=== PATIENT | male | born 1960 | race Caucasian/White ===

== ENCOUNTER 2019-12-15 15:41 | Outpatient (CLI) | payer BC, SELFPAY ==
--- NOTE | ~2019-12-15 | XR_ITS ---
EXAMINATION: XR chest 2V DATE: 12/15/2019 15:52 INDICATION: Cough and congestion. TECHNIQUE: Frontal and lateral views of the chest were obtained. COMPARISON: Chest CT 09/28/2018 FINDINGS: There is mild scarring at the lung apices. A calcified right lung nodule and calcified righ t hilar lymph nodes are consistent with old granulomatous disease. No pleural effusion or pneumothora x. The heart size is normal. IMPRESSION: 1. Mild scarring at the lung apices. Reviewed, dictated and finalized at location A.
== END 2019-12-15 15:42 | disposition home or self-care (01) ==
PROVIDERS: PCP Family Medicine; Visit Provider Family Medicine
DX: R05 Cough (principal)
CPT/HCPCS: 71046

== ENCOUNTER 2021-03-30 07:31 | Outpatient (CLI) | payer BC, SELFPAY ==
[2021-03-30 07:48] LABS: Basophils Absolute Auto 0.1 K/mm3 (0.0-0.1); Basophils Percent Auto 1.1 % (0.2-1.2); Eosinophils Absolute Auto 0.4 K/mm3 (0-0.3); Eosinophils Percent Auto 4.5 % (0-4.4); Hematocrit 42.3 % (42.0-52.0); Hemoglobin 13.8 g/dL (14.0-18.0); Immature Granulocyte Absolute 0.03 K/mm3 (0.00-0.031); Immature Granulocyte Percent A 0.4 % (0-0.5); Lymphocytes Absolute Auto 1.87 K/mm3 (0.9-3.2); Lymphocytes Percent Auto 22.2 % (18.3-44.2); Mean Corpuscular HGB Conc 32.6 g/dl (32-36); Mean Corpuscular Hemoglobin 27.9 pg (26-34); Mean Corpuscular Volume 85.6 fl (80-100); Mean Platelet Volume 8.9 fl (7.4-10.4); Monocytes Absolute Auto 0.9 K/mm3 (0.1-0.6); Monocytes Percent Auto 10.1 % (2.6-8.5); Neutrophils Absolute Auto 5.2 K/mm3 (1.3-6.7); Neutrophils Percent Auto 61.7 % (45.5-73.1); Platelet Count Result 281 k/mm3 (150-375); Red Blood Count 4.94 M/mm3 (4.6-6.20); Red Cell Distribution Width 14.1 % (11.5-14.5); White Blood Count 8.4 K/mm3 (4.5-10.0)
[2021-03-30 08:05] LABS: Alanine Aminotransferase 22 U/L (4-50); Albumin Level 4.2 g/dL (3.5-5.1); Alkaline Phosphatase 68 U/L (38-126); Anion Gap 8 mmol/L (8-16); Aspartate Amino Transferase 30 U/L (17-59); Bilirubin,Total 0.5 mg/dL (0.2-1.3); Blood Urea Nitrogen 21 mg/dL (9-20); Carbon Dioxide 25 mmol/L (22-30); Chloride 108 mmol/L (98-107); Estimated Glomerular Filt Rate > 60; Glucose 101 mg/dL (75-110); Potassium 4.2 mmol/L (3.4-5.0); Sodium 141 mmol/L (137-145)
[2021-03-30 08:30] LABS: Prostate Specific Antigen 0.4 ng/mL (< OR = 4.0)
[2021-03-30 08:39] LABS: Vitamin D 25 Hydroxy 59.3 ng/mL
[2021-03-30 09:04] LABS: Folic Acid 13.1 ng/mL (2.76->20)
== END 2021-03-30 07:32 | disposition home or self-care (01) ==
PROVIDERS: PCP Family Medicine; Visit Provider Family Medicine
DX: E78.5 Hyperlipidemia, unspecified (principal); F17.200 Nicotine dependence, unspecified, uncomplicated; I10 Essential (primary) hypertension; M19.90 Unspecified osteoarthritis, unspecified site; Z13.9 Encounter for screening, unspecified; Z79.899 Other long term (current) drug therapy; Z82.62 Family history of osteoporosis; Z87.891 Personal history of nicotine dependence
CPT/HCPCS: 36415; 80053; 82306; 82607; 82746; 84153; 84443; 85025; G0103

== ENCOUNTER 2021-05-01 07:56 | Outpatient (CLI) | payer BC, SELFPAY ==
--- NOTE | ~2021-05-01 | XR_ITS ---
EXAMINATION: XR chest 2V 05/01/2021 08:47 INDICATION: Shortness of breath PROCEDURE: PA and lateral views of the chest COMPARISON: 12/15/2019 FINDINGS: The lungs are clear. The cardiomediastinal silhouette is within normal limits. There are no pleural effusions. There is no pneumothorax suspected. There is calcified granuloma right midlun g zone. IMPRESSION: 1: NO ACUTE CARDIOPULMONARY DISEASE. Reviewed, dictated and finalized at location A.
[2021-05-01 08:55] LABS: Basophils Absolute Auto 0.1 K/mm3 (0.0-0.1); Basophils Percent Auto 1.3 % (0.2-1.2); Eosinophils Absolute Auto 0.2 K/mm3 (0-0.3); Hematocrit 41.3 % (42.0-52.0); Hemoglobin 13.7 g/dL (14.0-18.0); Immature Granulocyte Absolute 0.03 K/mm3 (0.00-0.031); Immature Granulocyte Percent A 0.4 % (0-0.5); Lymphocytes Absolute Auto 1.63 K/mm3 (0.9-3.2); Lymphocytes Percent Auto 21.3 % (18.3-44.2); Mean Corpuscular HGB Conc 33.2 g/dl (32-36); Mean Corpuscular Hemoglobin 28.1 pg (26-34); Mean Corpuscular Volume 84.6 fl (80-100); Mean Platelet Volume 9.4 fl (7.4-10.4); Monocytes Absolute Auto 0.8 K/mm3 (0.1-0.6); Monocytes Percent Auto 10.1 % (2.6-8.5); Neutrophils Absolute Auto 4.9 K/mm3 (1.3-6.7); Neutrophils Percent Auto 63.9 % (45.5-73.1); Platelet Count Result 321 k/mm3 (150-375); Red Blood Count 4.88 M/mm3 (4.6-6.20); Red Cell Distribution Width 13.8 % (11.5-14.5); White Blood Count 7.7 K/mm3 (4.5-10.0)
[2021-05-01 10:10] LABS: Vitamin D 25 Hydroxy 68.5 ng/mL
[2021-05-01 11:18] LABS: Alanine Aminotransferase 19 U/L (4-50); Alkaline Phosphatase 73 U/L (38-126); Anion Gap 10 mmol/L (8-16); Aspartate Amino Transferase 23 U/L (17-59); Bilirubin,Total 0.6 mg/dL (0.2-1.3); Blood Urea Nitrogen 22 mg/dL (9-20); Calcium 9.1 mg/dL (8.4-10.2); Carbon Dioxide 24 mmol/L (22-30); Chloride 105 mmol/L (98-107); Cholesterol 208 mg/dL (0-200); Estimated Glomerular Filt Rate > 60; Glucose 103 mg/dL (65-110); HDL Direct 47 mg/dL; Potassium 4.2 mmol/L (3.4-5.0); Sodium 139 mmol/L (137-145); Triglycerides 100 mg/dL (<150)
[2021-05-01 11:36] LABS: LDL Cholesterol Direct 119 mg/dL
[2021-05-01 12:20] LABS: Prostate Specific Antigen 0.5 ng/mL (< OR = 4.0)
[2021-05-01 12:54] LABS: Folic Acid 10.3 ng/mL (2.76->20)
[2021-05-01 16:06] LABS: Add Urine Microscopic? NO; Appearance Urine Clear (Clear); Bilirubin Urine Negative (Negative); Blood Urine Negative (Negative); Color Urine Straw (Yellow); Glucose Urine UA Negative (Negative); Ketones Urine Negative (Negative); Leukocyte Esterase Ur Negative LEU/UL (Negative); Nitrate Urine Negative (Negative); Protein Urine Negative (Negative); Specific Grav Ur 1.011 (1.001-1.035); Urobilinogen Urine Negative mg/dL (<2.0)
== END 2021-05-01 07:57 | disposition home or self-care (01) ==
PROVIDERS: PCP Family Medicine; Visit Provider Family Medicine
DX: B35.1 Tinea unguium (principal); E78.5 Hyperlipidemia, unspecified; I10 Essential (primary) hypertension; M19.90 Unspecified osteoarthritis, unspecified site; Z82.62 Family history of osteoporosis; Z79.899 Other long term (current) drug therapy; Z87.891 Personal history of nicotine dependence
CPT/HCPCS: 36415; 71046; 80053; 80061; 81003; 82306; 82607; 82746; 84153; 84443; 85025; G0103

== ENCOUNTER 2021-10-19 07:26 | Outpatient (CLI) | payer BC, SELFPAY ==
--- NOTE | ~2021-10-19 | XR_ITS ---
EXAMINATION: XR hand RT min 3V DATE: 10/19/2021 07:42 INDICATION: Pain at the base of right thumb. TECHNIQUE: 3 views of right hand were obtained. COMPARISON: Right hand radiographs 11/03/2018 FINDINGS: Trapezium is absent. There is proximal migration of first metacarpal. There is dorsal tilt of lunate. No fracture. There is severe osteoarthritis of lunate-capitate joint and scaphoid-trapezoi d joint. IMPRESSION: 1. Dorsal tilt of lunate, consistent with dorsal intercalated segmental instability (DISI). 2. 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 3. Polyarticular osteoarthritis. Reviewed, dictated and finalized at location B. S ROLLER IMPRESSION: 1. Dorsal tilt of lunate, consistent with dorsal intercalated segmental instabi lity (DISI). 2. 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 3. Polyarticular osteoarthritis.
== END 2021-10-19 07:27 | disposition home or self-care (01) ==
LOC: ANHBWCIMG 07:29
PROVIDERS: PCP Family Medicine; Visit Provider Family Medicine
DX: M19.041 Primary osteoarthritis, right hand (principal)
CPT/HCPCS: 73130

== ENCOUNTER 2021-10-31 14:30 | Outpatient (CLI) | payer BC, SELFPAY ==
--- NOTE | 2021-10-31 14:35 | ECG_ITS ---
Measurements Intervals [place] Rate: 73 P: 52 NH: 179 QRS: -15 QRSD: 113 T: 23 QT: 378 QTc: 418 Interpretive Statements SINUS RHYTHM ATRIAL PREMATURE COMPLEX INCOMPLETE RIGHT BUNDLE BRANCH BLOCK DELAYED PRECORDIAL R/S TRANSITION POSSIBLE LEFT VENTRICULAR HYPERTROPHY MINIMAL Q WAVES- HIGH LATERAL LEADS BORDERLINE ECG Electronically Signed On 10-31-2021 15:10:52 DOOR CLAMP OPERATOR by Teja Sherman D.O.
== END 2021-10-31 14:31 | disposition home or self-care (01) ==
LOC: ANHSURGERY 14:34
PROVIDERS: PCP Family Medicine; Visit Provider Podiatrist Foot & Ankle Surgery
DX: I10 Essential (primary) hypertension (principal); Z01.818 Encounter for other preprocedural examination; I45.10 Unspecified right bundle-branch block
CPT/HCPCS: 93005

== ENCOUNTER 2021-11-03 01:40 | Day surgery (SDC) | payer BC, SELFPAY ==
[2021-10-30 10:10] VITALS: BMI 30.2
--- NOTE | 2021-10-31 10:09 | SUR.PREOP ---
Report to the Outpatient Waiting Room, entrance under the green pavilion located off [facility], at time 0600_ on date 11/03/21__. OR Time: _0730___. - You and your visitor will be asked a series of questions to screen for COVID 19 for your protection. - A mask is required within the hospital. - Only one visitor is allowed at this time. Patient visitors will be guided where to wait when not with patient. Preoperative COVID Testing Requirements: No COVID Test needed if: (proof is required; if not received patient will have Rapid Test prior to entry) - Patient has received COVID Vaccine at least 14 days prior to procedure date or - Patient has positive COVID test result within last 90 days of surgery date. COVID Test needed if above criteria is not met If not COVID vaccinated a COVID test must be conducted within 72 hours of surgery and patient is asked to isolate self from time of testing until procedure. You will go to the [facility] for your COVID testing. The [facility] site is located at the corner of [address] [facility]. You will only be called if COVID results are positive and your surgeon may reschedule your elective surgery date. Patients may have clear liquids (water, carbonated beverages, clear teas, apple juice) until 3 hours prior to surgery with a maximum of 20 ounces. - No food from midnight until time of surgery may have 20 ounces of clear liquid before 0430 - Infants may have breast milk until 4 hours before surgery, formula 6 hours prior to surgery. - Children will be allowed to drink immediately following surgery. If applicable, please bring a bottle or sippy cup to assist with drinking. Juice, water, soda, and popsicles are readily available. For infants on formula, please bring formula the day of surgery. Pacifiers are allowed. Take the following medications with a SIP of water the morning of surgery: hold morning meds of surgery__ Medications to discontinue per physician _aspirin and piroxicam one week per surgeon order Date to take last dose__10/28/21 Please no make-up, nail jordanian, hairspray, perfume, deodorant, or body powder the day of surgery. No jewelry (including any body piercings) or valuables the day of surgery, leave them at home. Please take a shower or bath the night before, or the morning of, surgery with an antibacterial soap. Wear comfortable, loose fitting clothing. Children are encouraged to wear pajamas. - Jewelry must be removed prior to entering the operating room. Rings and piercings that are not removed may be cut off. - The hospital will not accept responsibility for valuables. - Please leave all valuables, including medications, at home the day of surgery. If you are going home after surgery, a licensed road driver must drive you home. - NO public transportation without another adult. - We recommend that an adult stay with you for 24 hours following discharge. - We also recommend that you do not drive, make important decision, drink alcoholic beverages, or take any drugs that were not prescribed by your health care provider for at least 24 hours after your discharge time. For Pediatric surgeries, we recommend two adults accompany the child home (only one inside the building at this time). Follow any additional instructions given to you from your surgeon. Telephone instructions given to __patient and asked if any additional questions and then verbalized understanding. Patient advised to call surgeon office or pre surgery nurse liaison [phone] if any additional questions.
--- NOTE | 2021-11-02 11:59 | WPDANESEPPF ---
Anes - Initial Pre Proc Eval Procedure: Operation Date: 11/03/21 07:30 Proposed Procedures p Arthrodesis First through Third Metatarsal Cuneiform Joint Right Foot, - Alcides Forbes JR, MD s Arthrodesis of The Subtalar Joint Right Foot - Alcides Forbes JR, MD Date/Time: 11/02/21 11:59 Surgeon: Alcides Forbes JR, MD Pre Op Diagnosis: neglected lisfranc injury, w/ pes planovalgus def Patient Data Age: 61 Gender: M Height: 1.88 m Weight: 106.59 kg Allergies Allergy/AdvReac Type Severity Reaction Status Date / Time amoxicillin Allergy Unknown Vomiting Verified 11/03/21 06:00 Home Medications Medication Instructions Recorded Confirmed Type terbinafine HCl 250 mg tablet 250 mg PO DAILY 03/20/21 11/03/21 History hydrocodone 10 mg-acetaminophen 1 tablet PO DAILY PRN #30 tablet 10/17/21 10/30/21 Rx 325 mg tablet losartan 100 mg tablet 100 mg PO DAILY #90 tablet 10/17/21 11/03/21 Rx piroxicam 20 mg capsule 20 mg PO DAILY #90 cap 10/17/21 11/03/21 Rx prochlorperazine maleate 10 mg 10 mg PO Q8H PRN #90 tablet 10/17/21 11/03/21 Rx tablet tadalafil 10 mg tablet 10 mg PO DAILY PRN #30 tablet 10/17/21 10/30/21 Rx trazodone 50 mg tablet 50 mg PO QHS PRN #30 tablet 10/17/21 11/03/21 Rx aspirin 325 mg PO DAILY 10/30/21 11/03/21 History omeprazole [Prilosec] 40 mg PO DAILY 10/30/21 11/03/21 History Patient hx anesthesia problems: none Family hx anesthesia problems: none Results Review: All pre-operative results and documents have been reviewed as part of the pre-operative evaluation. [facility], LAT[facility] Past Medical History Medical History (Updated 11/02/21 @ 12:00 by Eduardo Colin MD) Arthritis Cataract, right eye (~09/2019) Chronic narcotic use Hypertension (~09/2019) Obesity Smoker Snoring Surgical History Surgical History H/O thumb surgery History of back surgery Family History Family History Father Hypertension Family history of arthritis Family history of Alzheimer's disease, Onset Age: 88 Malignant neoplasm of prostate Sibling Hypertension Mother Family history of rheumatoid arthritis, Onset Age: 67 Social History Social History Smoking packs per day: 1.5 Smoking cigarettes per day: 30.0 Years smoked: 47 Smoking pack-years: 70.50 Smoking status: Former smoker Tobacco type: cigarettes Smoking end date: 10/30/21 Alcohol intake: current Drinks per week: 6 Substance use: never Substance use type: does not use Living arrangements: with family Spiritual care concerns: No Anes - Eval Final PreProcedure Day of Procedure 11/02/21 11:59 Patient weight: obese Heart: regular rate and rhythm Lungs: clear to auscultation and normal air movement Airway: Mallampati scale class II Neurological: alert and oriented Last oral intake: >/= 8 hours ASA classification: III Emergent: no Anesthetic plan: proceed Anesthesia type and monitoring: general LMA Results Review: All pre-operative results and documents have been reviewed as part of the pre-operative evaluation. Informed Consent: The patient's anesthetic plan and its attendant risks and benefits were discussed with the patient/family/POA. Questions were solicited and answers provided to the satisfaction of the patient/family/POA.
--- NOTE | 2021-11-02 12:03 | WPDANESPNB ---
Anes - Peripheral Nerve Block Date/Time: 11/02/21 12:03 I have discussed with the patient/family/POA the placement of a peripheral nerve block for post-operative pain management, including associated risks, benefits, complications, and side effects. Alternative methods of post-operative analgesia were detailed. Questions were solicited and answers provided to the satisfaction of the patient/family/POA. Time-Out: A pre-procedural Time-Out was completed immediately before starting the procedure and confirmed: Patient Identification, Site, Procedure, Patient Position and the Availability of Requisite Equipment. Clinical Indications: Acute post-operative pain management requested by the operative surgeon. Nerve Block Insertion Note Anes-nerve block: posterior fossa sciatic (20cc) right and adductor canal (10cc) right Patient position: supine Skin prep: chlorhexidine Needle: 22 gauge, stimulating, insulated echogenic needle. Needle length: 80 mm Technique: ultrasound (in plane) Injectate: bupivacaine 0.5% with epi 5 mcg/ml (20cc) Observations: tolerated well Complications: none Procedure start time:: 725 Procedure end time:: 0
[2021-11-03] VITALS (9 sets, daily range): BP systolic 104–171; BP diastolic 69–98; PULSE 75–106; RESP 10–20; TEMP 36.3–36.6; O2SAT 95–97; BMI 29.8
--- NOTE | ~2021-11-03 | XR_ITS ---
EXAMINATION: XR surgery orthopedic EXAM DATE: 11/03/2021 10:21 INDICATION: Right foot arthrodesis. TECHNIQUE: Fluoroscopy used during XR surgery orthopedic performed by Dr. Alcides Forbes JR MD. Radiologist was not present for the imaging or procedure. Total fluoroscopic time of 2 minutes 10 se conds. The DAP for this procedure was 27 cGycm2. A total of 5 images sent to PACS from the exam. FINDINGS: Images demonstrate lack screw extending through the subtalar joint, additional hardware ri dging the 1st metatarsal base, metatarsophalangeal joint, cuneiform bones. Correlate with procedure note. IMPRESSION: Fluoroscopy used during right foot surgery. Reviewed, dictated and finalized at location A. BLACKSMITH
[2021-11-03] MEDS: LACTATED RINGERS 1,000 ML 30 ML IV CONT ×2 (06:15→10:38)
--- NOTE | 2021-11-03 07:07 | WPDHPUPDATE1 ---
History and Physical Update Update Date/Time: 11/03/21 07:07 History and Physical has been reviewed, including an updated exam of the patient. There are NO changes in the patient's condition. Risks, benefits, and alternatives have been discussed and questions answered. Patient agrees to proceed with procedure.
[2021-11-03] MEDS: ceFAZolin 2 GM/D5W 50 ML 2 GM/50 ML BAG IVPB (07:35)
[2021-11-03] MEDS: fentaNYL CITRATE INJ (*CRX) 100 MCG/2 ML VIAL 25 MCG IV PUSH ×4 (10:50→11:33)
--- NOTE | 2021-11-03 10:50 | W.PM.PROC2 ---
Procedure Note - Detailed Date of Procedure 11/03/21 Pre-op Diagnosis 1. 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 Post traumatic pes plano valgus deformity right foot Post-op Diagnosis same Procedure Performed 1. Subtalar joint fusion right foot 2. Stabilization of the left midfoot left Surgeon Alcides Forbes JR, MD Anesthesia general and regional Indications Painful right hindfoot and midfoot Description of Procedure PROCEDURE IN DETAIL: Under mild sedation, the patient was brought into the operating room and placed on the operating table in the supine position. A pneumatic thigh tourniquet was placed about the patient's thigh. Following general anesthesia and a previous popliteal fossa block, the foot and ankle was then scrubbed, prepped, and draped in the usual aseptic manner. An Esmarch bandage was then used to exsanguinate the patient's foot and ankle and the pneumatic thigh tourniquet was then inflated to 350 mmHg. Surgery began in the following manner: At this point attention was directed to the lateral aspect of the hindfoot. An incision was made starting just distal to the lateral malleolus and extending towards the base of the 4th metatarsal. The incision was continued deep down through the subcutaneous tissues using sharp and blunt dissection. All bleeders were ligated and cauterized as necessary. At this point, the sinus tarsi was explored. A rongeur was used to resect all sinus tarsi contents and fat significant synovial tissue was debrided. The talocalcaneal ligament was cut. The extensor digitorum brevis muscle was detached form its origin to expose the calcaneal cuboid joint and lateral aspect of the posterior subtalar joint. The dissection was continued deep down through the subcutaneous tissues using sharp and blunt dissection both anterior and posterior to the sinus tarsi area. Furthermore, the dissection was continued posteriorly where the peroneal tendon sheath was incised exposing the peroneal tendons posteriorly. The calcaneofibular ligament was left intact. Next, a joint distractor was positioned along the lateral aspect of the talus and lateral aspect of the calcaneus. Two large Steinmann pins were placed from lateral to medial across the lateral aspect of the talar body and lateral aspect of the calcaneal body. The joint distractor was then used to open the subtalar joint exposing the cartilage and subchondral bone. Curette was used to resect all cartilage from the subtalar joint. Next, a small osteotome and mallet were used to fenestrate the posterior facet, floor of the sinus tarsi as well as the anterior and medial facets of the subtalar joint. Next, a 2.0 mm drill bit was used to also fenestrate the subchondral bone. Finally, a curette was also used to make sure that there is no remaining cartilage noted. None was noted. The wound site was flushed with copious amounts of sterile saline. At this point, the subtalar joint was held in a slight valgus position approximately 5 degrees. Next, a large guide wire for the [employer] headless 7.0 cannulated screw system was used to hold the subtalar joint in that slight valgus position and directed from the dorsal medial aspect of the neck of the talus to near the tuber of the calcaneus posterolaterally. A calcaneal axial view was used to make sure that the Steinmann pin was positioned within the constraints of the calcaneus and that there was good apposition of the subtalar joint. At this point, a 7.0 mm MUC Gengo headless compression screw was driven from dorsal to plantar across the subtalar joint with excellent compression noted and felt. This was all done in standard principles and techniques for the Gengo MUC screw system. The Gengo Allomatrix DR pena used to pack the sinus tarsi and parts of the visualized subtalar joint. Next, the medial incision was extended distally to the centra
[2021-11-03] MEDS: oxyCODONE HCL (*CRX) 5 MG TAB IR PO (12:09)
== END 2021-11-03 13:02 | disposition home or self-care (01) ==
PROVIDERS: PCP Family Medicine; Visit Provider Podiatrist Foot & Ankle Surgery
PROC: (CPT 28750; principal; 2021-11-03 07:30)
PROC: (CPT 28750; 2021-11-03 07:30)
DX: S92.201A Fracture of unspecified tarsal bone(s) of right foot, initial encounter for closed fracture (principal); X58.XXXA Exposure to other specified factors, initial encounter; G89.18 Other acute postprocedural pain; M19.071 Primary osteoarthritis, right ankle and foot; M25.374 Other instability, right foot; M21.41 Flat foot [pes planus] (acquired), right foot; Z79.82 Long term (current) use of aspirin; M19.90 Unspecified osteoarthritis, unspecified site; I10 Essential (primary) hypertension; R06.83 Snoring; Z87.891 Personal history of nicotine dependence; M25.571 Pain in right ankle and joints of right foot
CPT/HCPCS: 28725; 64445; 64447; 28740; A9270; C1713; J0690; J1100; J2250; J2405; J2704; J3010; J7120

== ENCOUNTER 2022-02-19 12:02 | Outpatient (CLI) | payer BC, SELFPAY ==
--- NOTE | ~2022-02-19 | XR_ITS ---
EXAMINATION: XR wrist RT min 3V INDICATION: Osteoarthritis, history of trapezium resection TECHNIQUE: Four views of the right wrist are obtained. COMPARISON: 10/19/2021 FINDINGS: Changes of trapezium resection are again noted. There is resulting proximal migration of th e first metacarpal. There is stable dorsal tilt of the lunate. There is severe osteoarthritis at the lunate capitate joint and the scaphoid-trapezoid joint. There are lucencies in the ulnar styloid. No fracture is identified. The soft tissues are unremarkable. IMPRESSION: 1. Dorsal intercalated segmental instability, unchanged. 2. Polyarticular osteoarthritis. 3. Changes of trapezium resection. Reviewed, dictated and finalized at location A.
== END 2022-02-19 12:03 | disposition home or self-care (01) ==
PROVIDERS: PCP Family Medicine
DX: M19.031 Primary osteoarthritis, right wrist (principal)
CPT/HCPCS: 73110

== ENCOUNTER 2022-05-14 08:38 | Outpatient (CLI) | payer BC, SELFPAY ==
--- NOTE | ~2022-05-14 | XR_ITS ---
EXAMINATION: XR chest 2V 05/14/2022 09:04 INDICATION: Cough for one month PROCEDURE: 2 view chest COMPARISON: 12/15/2019 FINDINGS: The lungs are clear. The cardiomediastinal silhouette is within normal limits. There are no pleural effusions. There is no pneumothorax suspected. There is calcified granuloma right mid th orax. There is chronic apical pleural thickening/scarring. IMPRESSION: 1: NO ACUTE CARDIOPULMONARY DISEASE. Reviewed, dictated and finalized at location A.
== END 2022-05-14 08:39 | disposition home or self-care (01) ==
LOC: ANHBWCIMG 08:39
PROVIDERS: PCP Family Medicine; Visit Provider Family Medicine
DX: R05.9 Cough, unspecified (principal); R09.89 Other specified symptoms and signs involving the circulatory and respiratory systems
CPT/HCPCS: 71046

== ENCOUNTER 2023-01-17 13:40 | Outpatient (CLI) | payer BC, SELFPAY ==
--- NOTE | ~2023-01-17 | CT_ITS ---
EXAMINATION: CT lung screening DATE: 01/17/2023 14:01 INDICATION: History of tobacco dependence. TECHNIQUE: Computed tomography (CT) of the chest was performed without intravenous contrast. The dose -length product was 209.32 mGy-cm. Automated exposure control and iterative reconstruction technique were employed. COMPARISON: CT dated 09/28/2018 FINDINGS: Stable low-density lesions in the liver, most likely cysts. The spleen contains calcified g ranulomas. No significant pleural or pericardial effusion. Borderline size mediastinal lymph nodes ar e likely reactive. Mild atherosclerosis. There is apical pleural thickening/scarring. Calcified granu anjali right mid thorax. No endobronchial lesions. No pneumothorax. Stable 2 mm right upper lobe nodule . 2 mm nodule right middle lobe. No acute osseous abnormality. IMPRESSION: 1. Lung-RADS category 2: Benign appearance or behavior. Continue annual screening with noncontrast lo w-dose chest CT in 12 months. Reviewed, dictated and finalized at location L. IMPRESSION: 1. Lung-RADS category 2: Benign appearance or behavior. Continue annual screeni ng with noncontrast low-dose chest CT in 12 months.
== END 2023-01-17 13:41 | disposition home or self-care (01) ==
PROVIDERS: PCP Family Medicine; Visit Provider Family Medicine
DX: Z12.2 Encounter for screening for malignant neoplasm of respiratory organs (principal); Z87.891 Personal history of nicotine dependence
CPT/HCPCS: 71271

== ENCOUNTER 2023-09-16 09:14 | Outpatient (CLI) | payer BC, SELFPAY ==
--- NOTE | ~2023-09-16 | XR_ITS ---
Left foot Technique: AP, oblique, and lateral views were obtained. Clinical History: Anesthesia scan Findings: No acute fracture or dislocation is seen. Osseous alignment is anatomic. Joint spaces are p reserved without erosive or degenerative change. Soft tissues are unremarkable. Impression: Unremarkable left foot radiographs. Reviewed, dictated and finalized at [facility]. DIABETES EDUCATOR Impression: Unremarkable left foot radiographs.
[2023-09-16 18:51] LABS: Hematocrit 48.2 % (42.0-52.0); Hemoglobin 15.3 g/dL (14.0-18.0); Mean Corpuscular HGB Conc 31.7 g/dl (32-36); Mean Corpuscular Hemoglobin 27.8 pg (26-34); Mean Corpuscular Volume 87.5 fl (80-100); Platelet Count Result 318 k/mm3 (150-375); Red Blood Count 5.51 M/mm3 (4.6-6.20); Red Cell Distribution Width 14.6 % (11.5-14.5); White Blood Count 10.8 K/mm3 (4.5-10.0)
[2023-09-16 20:12] LABS: Alanine Aminotransferase 22 U/L (6-50); Albumin Level 4.2 g/dL (3.5-5.1); Alkaline Phosphatase 70 U/L (38-126); Anion Gap 8 mmol/L (8-16); Aspartate Amino Transferase 54 U/L (17-59); Bilirubin,Total 0.8 mg/dL (0.2-1.3); Blood Urea Nitrogen 20 mg/dL (9-20); Calcium 9.4 mg/dL (8.4-10.2); Carbon Dioxide 25 mmol/L (22-30); Chloride 107 mmol/L (98-107); Estimated Glomerular Filt Rate > 60; Glucose 75 mg/dL (65-110); Potassium 4.1 mmol/L (3.4-5.0); Sodium 140 mmol/L (137-145)
== END 2023-09-16 09:15 | disposition home or self-care (01) ==
LOC: ANHBWCLAB 09:15
PROVIDERS: PCP Family Medicine; Visit Provider Family Medicine
DX: R20.0 Anesthesia of skin (principal); R53.83 Other fatigue; E66.9 Obesity, unspecified; F17.200 Nicotine dependence, unspecified, uncomplicated; D64.9 Anemia, unspecified
CPT/HCPCS: 36415; 73630; 80053; 85027

== ENCOUNTER 2023-12-27 08:18 | Outpatient (CLI) | payer BC, SELFPAY ==
--- NOTE | ~2023-12-27 | CT_ITS ---
CT Scan of the Chest without Contrast: Clinical Indication: Lung cancer screening, personal history of nicotine dependence Technique: Contiguous sections were acquired throughout the chest without intravenous contrast. Dose reduction technique was used on this scan by utilizing automated exposure control and iterative recon struction technique. The dose-length product (DLP) was 255.45 mGy-cm. COMPARISON: 01/17/2023 Findings: There is no evidence of any significant mediastinal, hilar or axillary lymphadenopathy. The mediastin al soft tissues appear normal. There is no evidence of pleural or pericardial effusion. Stable biapical scarring noted. Calcified right upper lobe granuloma present. Images through the upper abdomen reveal no abnormalities. Impression: Lung RADS 2: Benign appearance. 12 month follow-up screening CT advised. Reviewed, dictated and finalized at location . Impression: Lung RADS 2: Benign appearance. 12 month follow-up screening CT advised.
== END 2023-12-27 08:19 | disposition home or self-care (01) ==
PROVIDERS: PCP Family Medicine; Visit Provider Family Medicine
DX: Z12.2 Encounter for screening for malignant neoplasm of respiratory organs (principal); Z87.891 Personal history of nicotine dependence
CPT/HCPCS: 71271

== ENCOUNTER 2024-02-21 00:23 | Day surgery (SDC) | payer BC, SELFPAY ==
[2024-02-10 15:51] VITALS: BMI 31.4
[2024-02-21 06:48] VITALS: BP 165/96; PULSE 93; RESP 18; TEMP 36.5; O2SAT 97; BMI 32.2
[2024-02-21] MEDS: LACTATED RINGERS 1,000 ML 150 ML IV CONT (06:57)
--- NOTE | 2024-02-21 07:50 | PM.HPGS ---
History of Present Illness History of Present Illness Consent: Risks, benefits, and alternatives have been discussed and questions answered. Patient agrees to proceed with procedure. Chief complaint: hx of colon polyps Narrative: eGn Cifuentes is a 63 year old male with colon polyp 7 years ago Review of Systems Review of Systems: All systems reviewed & are unremarkable except as noted in HPI and below PMFSH Past Medical History Medical History (Updated 02/21/24 @ 07:53 by Evaristo Rico MD) Adenomatous colon polyp Arthritis Cataract, right eye (~09/2019) Chronic narcotic use Hypertension (~09/2019) Obesity Smoker Snoring Surgical History Surgical History H/O thumb surgery History of back surgery Family History Family History Father Hypertension Family history of arthritis Family history of Alzheimer's disease, Onset Age: 88 Malignant neoplasm of prostate Sibling Hypertension Mother Family history of rheumatoid arthritis, Onset Age: 67 Social History Social History Smoking packs per day: 2 Smoking cigarettes per day: 40.0 Years smoked: 47 Smoking pack-years: 94.00 Smoking status: Former smoker Tobacco type: cigarettes Smoking end date: 10/30/21 Alcohol intake: current Drinks per week: 4 Substance use: never Substance use type: does not use Living arrangements: with family Spiritual care concerns: No Meds Home Medications and Allergies Home Medications Medication Instructions Recorded Confirmed Type prochlorperazine maleate 10 mg 10 mg PO Q8H PRN nausea and 10/17/21 02/21/24 Rx tablet vomiting #90 tabs omeprazole 40 mg capsule,delayed 40 mg PO DAILY #90 caps 10/23/22 02/21/24 Rx release benzonatate 200 mg capsule 200 mg PO TID PRN cough #30 caps 08/23/23 02/21/24 Rx hydrocodone 10 mg-acetaminophen 1 tablet PO DAILY PRN pain #30 tabs 09/16/23 02/21/24 Rx 325 mg tablet trazodone 100 mg tablet 100 mg PO QHS PRN insomnia #90 tabs 10/01/23 02/21/24 Rx amlodipine 5 mg tablet 2.5 mg PO DAILY 12/23/23 02/21/24 History aspirin 325 mg tablet 650 mg PO DAILY 12/23/23 02/21/24 History montelukast 10 mg tablet 10 mg PO DAILY #90 tabs 12/30/23 02/21/24 Rx losartan 100 mg tablet 100 mg PO DAILY #90 tabs 02/03/24 02/21/24 Rx piroxicam 20 mg capsule 20 mg PO DAILY #90 caps 02/03/24 02/21/24 Rx tadalafil 10 mg tablet (Cialis) 10 mg PO DAILY 02/10/24 02/21/24 History Allergies Allergy/AdvReac Type Severity Reaction Status Date / Time codeine AdvReac Intermediate Gastrointestinal Verified 02/21/24 06:47 Upset amoxicillin AdvReac Unknown constipatio Verified 02/21/24 06:47 n Vital Signs Vital Signs - 24 hr 02/21/24 06:48 Temperature 97.7 F Pulse Rate 93 Respiratory Rate 18 Blood Pressure 165/96 H Pulse Oximetry 97 Oxygen Delivery Room Air Exam Const: General: comfortable and no acute distress HENMT: Face/Nose/Sinus: Normal nares present Eyes: General: appearance normal, both eyes and all related structures Neck: Neck: no JVD Resp: Auscultation: clear to auscultation bilaterally Cardio: Rate: regular rate Rhythm: regular rhythm GI: Inspection: non-distended GI Palp: Yes Soft to palpation Skin: General skin exam: normal color Neuro: General: gait normal Speech: normal speech Extrem: General: normal to inspection Psych: Mental Status: mental status grossly normal Assessment and Plan Assessment and plan (1) Adenomatous colon polyp: Code(s): D12.6 - Benign neoplasm of colon, unspecified Status: Acute Assessment and Plan: colonoscopy
--- NOTE | 2024-02-21 07:58 | WPDANESEPPF ---
Anes - Initial Pre Proc Eval Procedure: Operation Date: 02/21/24 08:00 Proposed Procedures p Colonoscopy - Evaristo Rico MD Date/Time: 02/21/24 07:58 Surgeon: Evaristo Rico MD Pre Op Diagnosis: hx of colon polyps Patient Data Age: 63 Gender: M Height: 1.88 m Weight: 114 kg Last Vital Signs Temp 97.7 F 02/21/24 06:48 Pulse 93 02/21/24 06:48 Resp 18 02/21/24 06:48 BP 165/96 H 02/21/24 06:48 Pulse Ox 97 02/21/24 06:48 O2 Del Method Room Air 02/21/24 06:48 Allergies Allergy/AdvReac Type Severity Reaction Status Date / Time codeine AdvReac Intermediate Gastrointestinal Verified 02/21/24 06:47 Upset amoxicillin AdvReac Unknown constipatio Verified 02/21/24 06:47 n Home Medications Medication Instructions Recorded Confirmed Type prochlorperazine maleate 10 mg 10 mg PO Q8H PRN nausea and 10/17/21 02/21/24 Rx tablet vomiting #90 tabs omeprazole 40 mg capsule,delayed 40 mg PO DAILY #90 caps 10/23/22 02/21/24 Rx release benzonatate 200 mg capsule 200 mg PO TID PRN cough #30 caps 08/23/23 02/21/24 Rx hydrocodone 10 mg-acetaminophen 1 tablet PO DAILY PRN pain #30 tabs 09/16/23 02/21/24 Rx 325 mg tablet trazodone 100 mg tablet 100 mg PO QHS PRN insomnia #90 tabs 10/01/23 02/21/24 Rx amlodipine 5 mg tablet 2.5 mg PO DAILY 12/23/23 02/21/24 History aspirin 325 mg tablet 650 mg PO DAILY 12/23/23 02/21/24 History montelukast 10 mg tablet 10 mg PO DAILY #90 tabs 12/30/23 02/21/24 Rx losartan 100 mg tablet 100 mg PO DAILY #90 tabs 02/03/24 02/21/24 Rx piroxicam 20 mg capsule 20 mg PO DAILY #90 caps 02/03/24 02/21/24 Rx tadalafil 10 mg tablet (Cialis) 10 mg PO DAILY 02/10/24 02/21/24 History Patient hx anesthesia problems: none Family hx anesthesia problems: none Results Review: All pre-operative results and documents have been reviewed as part of the pre-operative evaluation. [facility] Past Medical History Medical History (Updated 02/21/24 @ 07:53 by Evaristo Rico MD) Adenomatous colon polyp Arthritis Cataract, right eye (~09/2019) Chronic narcotic use Hypertension (~09/2019) Obesity Smoker Snoring Surgical History Surgical History H/O thumb surgery History of back surgery Family History Family History Father Hypertension Family history of arthritis Family history of Alzheimer's disease, Onset Age: 88 Malignant neoplasm of prostate Sibling Hypertension Mother Family history of rheumatoid arthritis, Onset Age: 67 Social History Social History Smoking packs per day: 2 Smoking cigarettes per day: 40.0 Years smoked: 47 Smoking pack-years: 94.00 Smoking status: Former smoker Tobacco type: cigarettes Smoking end date: 10/30/21 Alcohol intake: current Drinks per week: 4 Substance use: never Substance use type: does not use Living arrangements: with family Spiritual care concerns: No Anes - Eval Final PreProcedure Day of Procedure 02/21/24 07:58 Patient weight: obese Heart: regular rate and rhythm Lungs: clear to auscultation Airway: Mallampati scale class III Neurological: alert and oriented Last oral intake: >/= 8 hours ASA classification: III Emergent: no Anesthetic plan: proceed Anesthesia type and monitoring: general GIVS and standard monitoring Results Review: All pre-operative results and documents have been reviewed as part of the pre-operative evaluation. Informed Consent: The patient's anesthetic plan and its attendant risks and benefits were discussed with the patient/family/POA. Questions were solicited and answers provided to the satisfaction of the patient/family/POA.
[2024-02-21 08:16] VITALS: BP 138/83; PULSE 88; RESP 28; O2SAT 97
[2024-02-21 08:26] VITALS: BP 153/89; PULSE 87; RESP 23; O2SAT 100
[2024-02-21 08:36] VITALS: BP 137/95; PULSE 83; RESP 20; O2SAT 99
== END 2024-02-21 08:38 | disposition home or self-care (01) ==
PROVIDERS: PCP Family Medicine; Visit Provider Internal Medicine Gastroenterology
PROC: 0DJD8ZZ Inspection of Lower Intestinal Tract, Via Natural or Artificial Opening Endoscopic (ICD-10-PCS; CPT 45378; principal; 2024-02-21 08:00)
DX: Z12.11 Encounter for screening for malignant neoplasm of colon (principal); K57.30 Diverticulosis of large intestine without perforation or abscess without bleeding; K64.8 Other hemorrhoids; Z86.010 Personal history of colon polyps; I10 Essential (primary) hypertension; Z79.82 Long term (current) use of aspirin; Z79.891 Long term (current) use of opiate analgesic; E66.9 Obesity, unspecified; Z68.32 Body mass index [BMI] 32.0-32.9, adult; Z87.891 Personal history of nicotine dependence
CPT/HCPCS: 45378; J2704; J7120

== ENCOUNTER 2024-04-24 09:38 | Outpatient (CLI) | payer BC, SELFPAY ==
[2024-04-24 10:00] LABS: Basophils Absolute Auto 0.1 K/mm3 (0.0-0.1); Basophils Percent Auto 1.3 % (0.2-1.2); Eosinophils Absolute Auto 0.5 K/mm3 (0-0.3); Eosinophils Percent Auto 5.4 % (0-4.4); Hematocrit 46.3 % (42.0-52.0); Hemoglobin 15.2 g/dL (14.0-18.0); Immature Granulocyte Absolute 0.02 K/mm3 (0.00-0.031); Immature Granulocyte Percent A 0.2 % (0-0.5); Lymphocytes Absolute Auto 1.94 K/mm3 (0.9-3.2); Lymphocytes Percent Auto 22.7 % (18.3-44.2); Mean Corpuscular HGB Conc 32.8 g/dl (32-36); Mean Corpuscular Hemoglobin 28.2 pg (26-34); Mean Corpuscular Volume 85.9 fl (80-100); Monocytes Absolute Auto 0.8 K/mm3 (0.1-0.6); Monocytes Percent Auto 9.4 % (2.6-8.5); Neutrophils Absolute Auto 5.2 K/mm3 (1.3-6.7); Platelet Count Result 291 k/mm3 (150-375); Red Blood Count 5.39 M/mm3 (4.6-6.20); Red Cell Distribution Width 13.8 % (11.5-14.5); White Blood Count 8.6 K/mm3 (4.5-10.0)
[2024-04-24 10:12] LABS: Alanine Aminotransferase 19 U/L (6-50); Albumin Level 4.3 g/dL (3.5-5.1); Alkaline Phosphatase 70 U/L (38-126); Anion Gap 8 mmol/L (4-12); Aspartate Amino Transferase 21 U/L (17-59); Blood Urea Nitrogen 21 mg/dL (9-20); Calcium 8.7 mg/dL (8.4-10.2); Carbon Dioxide 27 mmol/L (22-30); Chloride 104 mmol/L (98-107); Cholesterol 199 mg/dL (0-200); Estimated Glomerular Filt Rate > 60; Glucose 97 mg/dL (65-110); HDL Direct 40 mg/dL; Potassium 4.1 mmol/L (3.4-5.0); Sodium 139 mmol/L (137-145); Triglycerides 111 mg/dL (<150)
[2024-04-24 10:23] LABS: LDL Cholesterol Direct 134 mg/dL
[2024-04-24 10:41] LABS: Prostate Specific Antigen 0.4 ng/mL (< OR = 4.0)
== END 2024-04-24 09:39 | disposition home or self-care (01) ==
LOC: ANHLAB 09:39
PROVIDERS: PCP Family Medicine; Visit Provider Family Medicine
DX: D64.9 Anemia, unspecified (principal); F17.200 Nicotine dependence, unspecified, uncomplicated; G47.00 Insomnia, unspecified; I10 Essential (primary) hypertension; N40.0 Benign prostatic hyperplasia without lower urinary tract symptoms; Z00.00 Encounter for general adult medical examination without abnormal findings; Z13.9 Encounter for screening, unspecified
CPT/HCPCS: 36415; 80053; 80061; 84153; 85025; G0103

== ENCOUNTER 2024-04-27 12:48 | Outpatient (CLI) | payer BC, SELFPAY ==
--- NOTE | ~2024-04-27 | US_ITS ---
EXAMINATION: US soft tissue UE LT DATE: 04/27/2024 13:03 INDICATION: Palpable area at the left wrist TECHNIQUE: Multiple grayscale and Doppler ultrasound images of the region of concern at the dorsal ul edna side of the distal wrist were obtained. COMPARISON: None FINDINGS: Tenosynovial fluid collection extending along one of the tendons at the region of concern. The tenosy novial fluid collection extends for possible 5 cm in length and measures 2.3 x 0.9 cm in maximal smith saxial dimensions. The tendon can be seen coursing through the fluid. There appears to be additional deeper tenosynovial fluid collection extending 4.6 similar proximal to distal and measuring 1.7 x 0.6 cm in transaxial dimensions. IMPRESSION: 1. Tenosynovitis with prominent tenosynovial fluid collection surrounding a couple tendons at the rep orted posterior/ulnar aspect of the left wrist. The identity of the tendons is unable to be establish ed from the provided images. Reviewed, dictated and finalized at location A. IMPRESSION: 1. Tenosynovitis with prominent tenosynovial fluid collection surrounding a cou ple tendons at the reported posterior/ulnar aspect of the left wrist. The ident ity of the tendons is unable to be established from the provided images.
== END 2024-04-27 12:49 ==
LOC: MICIMG 12:48
PROVIDERS: PCP Family Medicine; Visit Provider Family Medicine
DX: R22.32 Localized swelling, mass and lump, left upper limb (principal); M65.842 Other synovitis and tenosynovitis, left hand
CPT/HCPCS: 76882

== ENCOUNTER 2024-11-02 09:45 | Outpatient (CLI) | payer BC, SELFPAY ==
--- OUTSIDE RECORDS SUMMARY | 2024-11-02 10:29 | XMS_ITS | Referral Summary ---
Author Organization [facility] [address] Address [address] [place] [address] Phone Care Team Providers Care Shooter'S Helper Name Role Phone John Kam MD Primary Care Provider [phone] Allergies Active Allergy Reactions Criticality Noted Date Comments Penicillins Nausea only,Vomiting Reaction: Nausea, Vomiting, , Reaction: Nausea, Vomiting, Medications aspirin 325 mg tablet take 2 tablet by oral route every 6 hours as needed 0 0 6 Active solifenacin (VESICARE) 5 mg tablet take 1 tablet by oral route every day 0 0 6 Active Additional Information Patient not taking.Reported on 02/20/2018 predniSONE (DELTASONE) 5 mg tablet Take 4 tablets daily x 30 days, then 2 tablets daily x 30 days, then 1 tablet daily x 30 days. 210 tablet 8 Active Additional Information Patient not taking.Reported on 02/20/2018 HYDROcodone-kristina taminophen (NORCO) 10-325 mg per tablet Take 1 tablet by mouth every 6 (six) hours as needed for pain. 45 tablet 8 Active prochlorperazin e (COMPAZINE) 10 mg tablet Take 1 tablet (10 mg total) by mouth 3 (three) times a day as needed for nausea. 30 tablet 3 8 Active tadalafil (CIALIS) 5 mg tablet Take 1 tablet (5 mg total) by mouth daily. 30 tablet 3 8 Active hydroCHLOROthia zide (HYDRODIURIL) 25 mg tablet TAKE ONE TABLET BY MOUTH ONCE DAILY 30 tablet 5 8 Active piroxicam (FELDENE) 20 mg capsule TAKE ONE CAPSULE BY MOUTH ONCE DAILY 90 capsule 1 8 Active Active Problems Problem Noted Date Diagnosed Date Degeneration of intervertebral disc of lumbar re gion 08/13/2016 Overview (01/12/2017): Lumbar disc degenerative disease Benign prostatic hyperplasia 08/13/2016 Overview (01/12/2017): BPH - Benign prostatic hypertrophy H/O: R cataract extraction 08/13/2016 Overview (01/12/2017): H/O: R cataract extraction Pain in wrist 03/09/2016 Overview (01/12/2017): Wrist pain Thumb pain 03/09/2016 Overview (01/12/2017): Thumb pain Current smoker 03/09/2016 Overview (01/12/2017): Current smoker Immunizations Name Administration Dates Next Due Influenza, Quadrivalent, Spl it, Preservative Free, Intramuscular 08/13/2016,08/08/2015 Influenza, Unspecified 10/08/2016(Deferred: Marly ent Refused) Social History Tobacco Use Types Packs/Day Years Used Date Smoking Tobacco: Former Smokeless Tobacco: Never Alcohol Use Standard Drinks/Week Comments Yes 0 (1 standard drink = 0.6 oz pur e alcohol) Sex and Gender Information Value Date Recorded Sex Assigned at Not on file 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 Gender Identity Not on file Sexual Orientation Not on file Last Filed Vital Signs Vital Sign Reading Time Taken Comments Blood Pressure 142/82 02/20/2018 9:57 AM CDT Pulse 66 02/20/2018 9:57 AM CDT Temperature 36.7 ??C (98.1 ??F) 02/20/2018 9:57 AM CD T Respiratory Rate 16 02/20/2018 9:57 AM CDT Oxygen Saturation 96% 02/20/2018 9:57 AM CDT Inhaled Oxygen Concentration - - Weight 96.6 kg (213 lb) 02/20/2018 9:57 AM CDT Height 188 cm (6' 2 ) 02/20/2018 9:57 AM CDT Body Mass Index 27.35 02/20/2018 9:57 AM CDT Plan of Treatment Not on file Procedures Procedure Name Priority Date/Time Associated Diagnosis Comments PSA SCREEN Routine 02/21/2018 8:04 AM CDT COLONOSCOPY IMAGES 10/25/2016 from Last 3 Months or Most Recently Relevant to Health Maintenance Results * PSA screen (02/21/2018 8:04 AM CDT) PSA 0.4 < OR = 4.0 ng/mL [facility] [place] Comment: The total PSA value from this assay system is standardized against the WHO standard. The test result will be approximately 20% lower when compared to the equimolar-standardized total PSA (Mike Alpine). Comparison of serial PSA results should be interpreted with this fact in mind. This test was performed using the Siemens chemiluminescent method. Values obtained from different assay methods cannot be used interchangeably. PSA levels, regardless of value, should not be interpreted as absolute evidence of the presence or absence of disease. 02/21/2018 8:04 AM CDT 02/21/2018 8:05 AM CDT Narrative [facility] - 02/22/2018 2:36 AM CDT FASTING:YES FASTING: YES Resulting Agency Comment Performing Organization Information: ?Site ID: [place] ?Name: [facility] ?Address: [address] [place] [address] [place] [id number] ?Director: Ubaldo Kaur D.O., MPH us Dash Nation MD LAB BLOOD ORDERABLES Katharina palmer Result [facility] [place] * COLONOSCOPY IMAGES (10/25/2016) Anatomical Region Laterality Modality Other Narrative 10/25/2016 Ordered by an unspecified provider. us Historical Provider GI PROCEDURE ORDERABLES F inal Result from Last 3 Months or Most Recently Relevant to Health Maintenance Insurance [place] ACCESS CHO[place] [address] [id number] Care Teams Shooter'S Helper Relationship Specialty Start Date End Date John Kam MD PCP - General Family Practice 03/30/22
--- OUTSIDE RECORDS SUMMARY | 2024-11-02 10:29 | XMS_ITS | Clinical Summary ---
Author Organization [facility] [address] Address [address] [place] [address] Phone Care Team Providers Care Learning Support Specialist Name Role Phone John Kam MD Primary Care Provider [phone] Allergies Active Allergy Reactions Criticality Noted Date [...] 08/13/2016,08/08/2015 Influenza, Unspecified 10/08/2016(Deferred: Marly ent Refused) Surgical History Surgery Date Site/Laterality Comments LUMBAR SPINE SURGERY Surgery, lumbar spine OTHER SURGICAL HISTORY lens replacement THUMB SURGERY 06/07/2017 - 07/06/2017 Medical History Medical History Date Comments Hx Other Medical Two back surger ies in 1999 and one in 2001.; Comments: AN 03/12/2016 - Hx Other Medical 1998 lower back; Com ments: CLS 08/13/2016 - Benign prostatic hyperplasia Jordon ign prostatic hypertrophy Hx Other Medical 01-21-17 Depo-Me drol injection right thumb.; Comments: AN 01/22/2017 - Family History Medical History Relation Name Comments Hypertension Brother Hypertension; Alzheimer's disease Father Alzheime r's disease; Prostate cancer Father Cancer, pros block; Cause of : Cancer, prostate Rheum arthritis Mother Rheumatoid a rthritis; Other Other Family history of hypertension in father and brother and family history of arthritis.; Relation Name Status Comments Brother Father Mother (Age 67) Other Social History Tobacco Use Types Packs/Day Years Used Date Smoking Tobacco: Former Smokeless Tobacco: Never Alcohol Use Standard Drinks/Week Comments Yes 0 (1 standard drink = 0.6 oz pur e alcohol) Sex and Gender Information Value Date Recorded Sex Assigned at Not on file 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 Gender Identity Not on file Sexual Orientation Not on file Obstetrics History Last Filed Vital Signs Vital Sign Reading [...] 02/20/2018 9:57 AM CDT Plan of Treatment Health Maintenance Due Date Last Done Comments Hepatitis C Screening 1959 Hepatitis B Screening 1977 Depression Screening 02/20/2019 02/20/2018, 07/15/20 17 Fall Risk Assessment 02/20/2019 02/20/2018 Prostate Cancer Screening-PSA 02/22/2020 02/21/2018 Zoster Vaccine (2 of 2) 10/15/2020 08/20/2020 Covid-19 Vaccine (3 - 2023-2 5 season) 2024 05/20/2021, 04/21/2021 Influenza Vaccine (#1) 2024 , 08/20/2020, 07/07/2018, Additional history exists Abdominal Aortic Aneurysm (A AA) Screen 2024 Pneumococcal vaccine 65+ (1 of 1 - PCV) 2024 Well Visit 65+ 2024 Colon Cancer Screening-Colonoscopy 10/25/2026 10/25/2016 DTaP/Tdap/Td Vaccine (2 - Td or Tdap) 10/19/2031 10/19/2021 Colon Cancer Screening-CT Colonography Discontinued 10/25/2016 Colon Cancer Screening-DNA Stool Discontinued 10/25/19 17 Colon Cancer Screening-FIT Discontinued 10/25/2016 Colon Cancer Screening-Sigmoidoscopy Discontinued 10/25/2016 Procedures Procedure Name Priority Date/Time Associated Diagnosis Comments PSA SCREEN Routine 02/21/2018 8:04 AM CDT COLONOSCOPY IMAGES 10/25/2016 from Last 3 Months or Most Recently Relevant to Health Maintenance Results * PSA screen (02/21/2018 8:04 AM CDT) PSA 0.4 < OR = 4.0 ng/mL [facility] Comment: The total PSA value from this assay system is standardized against the WHO standard. The test result will be approximately 20% lower when compared to the equimolar-standardized total PSA (Mike Andrea). Comparison of serial PSA results should be [...] Agency Comment Performing Organization Information: ?Site ID: [place] ?Name: [facility] ?Address: [address] [place] [id number] ?Director: Ubaldo Kaur D.O., MPH Dash Nation MD LAB BLOOD ORDERABLES Katharina l Result [facility] [place], [place] * COLONOSCOPY IMAGES (10/25/2016) Anatomical Region Laterality Modality Other Narrative 10/25/2016 Ordered by an unspecified provider. Historical Provider GI PROCEDURE ORDERABLES F inal Result from Last 3 Months or Most Recently Relevant to Health Maintenance Insurance [place] ACCESS CHO[place] Subscriber Plan / Payer (Ef fective 2018-Present) Name:Gen Kan Relation to Subscriber:Spouse Name:LUCIUSANGELA Date of :1968 (Home) (Work) Address: [address] [place] [address] Payer ID:[id number] (NAIC) Group ID:[id number] Type:BC OTHER Address: [address] Care Teams Learning Support Specialist Relationship Specialty Start Date End Date John Kam MD PCP - General Family Practice 03/30/22
--- OUTSIDE RECORDS SUMMARY | 2024-11-02 10:29 | XMS_ITS | Continuity of Care Document ---
Author Organization [facility] Address [address] [place] [address] Phone Care Team Providers Care Candy Packer Name Role Phone Cherelle SUAREZ OD, Georgi Unavailable Unavailabl e Procedures Procedure Date Post-op Follow-up Visit Post-op Follow-up Visit Post-op Follow-up Visit Post-op Follow-up Visit Post-op Follow-up Visit Post-op Follow-up Visit Post-op Follow-up Visit Autonomous -Lasik Comanaged Corneal Topography Advance Directives Directive Yes / No Effective Date File Name No Information Encounters Encounter Description Practice Location Reason(s) For Visit Diagnoses Date Provider Providers Copied on Encounter [facility], [address], [place], [place], [id number], [place] tel:[phone] [facility] No Information Cherelle Laureano. [address], [place], [id number], [place]. tel:[phone] Referring Provider: Georgi León, [address] [place], [address] . tel:[phone] [facility], [address], [place], [place], [id number], tel:[phone] [facility] No Information Cherelle SUAREZ Georgi. [address] [facility], [place], [place], [id number], [place]. tel:[phone] Referring Provider: Georgi Cherelle SUAREZ P, [address] [facility], [place], [address] . tel:[phone] [facility], [address], [place], [place], [address], [place] tel:[phone] [facility] No Information Cherelle OD Georgi. [address] [facility], [place], [place], [address], [place]. tel:[phone] [facility], [address], [place], [place], [address], [place] tel:[phone] [facility] No Information Cherelle SUAREZ Georgi. [address] [facility], [place], [place], [address], [place]. tel:[phone] [facility], [address], [place], [place], [address], [place] tel:[phone] [facility] No Information Cherelle SUAREZ Georgi. [address] [facility], [place], [place], [address], [place]. tel:[phone] [facility], [address], [place], [place], [address], [place] tel:[phone] [facility] No Information Cherelle SUAREZ Georgi. [address] [facility], [place], [place], [address], [place]. tel:[phone] [facility], [address], [place], [place], [address], [place] tel:[phone] [facility] No Information Cherelle Laureano. [address], [place], [address], . tel:[phone] [facility], [address], [place], [place], [address], tel:[phone] [facility] No Information [facility] . [address] [place], [place], [address], [place]. tel:[phone] Referring Provider: Georgi León, [address] [place], [address] . tel:[phone] [facility], [address], [place], [place], [address], tel:[phone] [facility] No Information Holly Patterson. [address], [place], [place], [address], . tel:[phone] Referring Provider: Georgi León, [address] [place], [address] . tel:[phone] Family History Family Member Type Diagnosis Age At Onset No Information Payers Payer name Insurance type Covered constitution party ID Authoriza tion(s) No Information Social History Type Description Quantity Date Captured Comments Sex Male Smoking Status No Information Chief Complaint And Reason For Visit No Information Reason For Referral Reason For Referral No Information History Of Present Illness Encounter Date Complaint History Of Prese nt Illness No Information Functional Status Date Functional Assessmen t No Information Instructions Date Instruction Additional Infor mation No Information Assessments Type Assessment Date No Information Patient Care Teams Name Effective Dates (start - stop) Status Members No Information
--- OUTSIDE RECORDS SUMMARY | 2024-11-02 10:29 | XMS_ITS | Clinical Summary ---
Author Organization [facility] Address [address] [place] [address] Phone Care Team Providers Care Spinning Lathe Operator Hydraulic Name Role Phone Provider, None Primary Care Provider Unavailabl e Social History Tobacco Use Types Packs/Day Years Used Date Smoking Tobacco: Never Assessed Sex and Gender Information Value Date Recorded Sex Assigned at Not on file Legal Sex Male 11:54 PM CDT Gender Identity Not on file Sexual Orientation Not on file Plan of Treatment Health Maintenance Due Date Last Done Comments Hepatitis C Virus (HCV) Screening 1960 TdaP Immunization 1959 Colonoscopy 2004 Colorectal Cancer Screening 2004 Cologuard 2009 Immunochemical Fecal Occult Blood 2009 Pneumococcal Immunization (5 0+ years) (1 of 1 - PCV) 2009 PSA Discussion 2014 Zoster Immunization (2 of 2) 10/15/2020 08/20/2020 Influenza Immunization (#1) 2024 08/20/2020 SARS-COV-2 Immunization ( season) 2024 05/20/2021, 04/21/2021 Respiratory Syncytial Virus (RSV) Immunization (Adult) (1 - 1-dose 75+ series) 2034 Hepatitis B Immunization Aged Out No longer eligible based on patient's age to complete this topic Meningococcal Immunization (ACWY) Aged Out No longer eligible b ased on patient's age to complete this topic Pneumococcal Immunization Combined Aged Out No longer eligible b ased on patient's age to complete this topic Rotavirus Immunization Aged Out No lo nger eligible based on patient's age to complete this topic Insurance [facility] Care Teams Spinning Lathe Operator Hydraulic Relationship Specialty Start Date End Date Provider, None LORELEI PCP - General 09/26/21
--- OUTSIDE RECORDS SUMMARY | 2024-11-02 10:29 | XMS_ITS | Clinical Summary ---
Author Organization [facility] Address [address] [place] [address] Care Team Providers Care Histopath Tech Name Role Phone Frederick Farley MD Primary Care Provider + Medications azithromycin (ZITHROMAX) 250 mg tablet 2 Active azithromycin (ZITHROMAX) 250 mg tablet Zithromax Z-Jeremy 250 mg tablet TAKE 2 TABLETS (500 MG) BY ORAL ROUTE ONCE DAILY FOR 1 DAY THEN 1 TABLET (250 MG) BY ORAL ROUTE ONCE DAILY FOR 4 DAYS Active baclofen (LIORESAL) 10 mg tablet baclofen 10 mg tablet Active benzonatate (TESSALON) 200 mg capsule benzonatate 200 mg capsule Take 1 capsule 3 times a day by oral route. Active SantyL 250 unit/gram Ointment APPLY TO WOUND TWICE A DAY 2 Active doxycycline hyclate (VIBRAMYCIN) 100 mg capsule TAKE 1 CAPSULE BY MOUTH EVERY 24 HOURS UNTIL GONE 2 Active hydroCHLOROthia zide 25 mg tablet every 24 hours. 8 Active losartan (COZAAR) 100 mg tablet Take 100 mg by mouth daily. 0 Active losartan (COZAAR) 100 mg tablet 2 Active losartan (COZAAR) 100 mg tablet every 24 hours. Acti ve piroxicam (FELDENE) 20 mg capsule Take 20 mg by mouth daily. 8 Active Active Problems No known active problems Social History Tobacco Use Types Packs/Day Years Used Date Smoking Tobacco: Never Assessed Sex and Gender Information Value Date Recorded Sex Assigned at Not on file Legal Sex Male 12:01 PM CDT Gender Identity Not on file Sexual Orientation Not on file Last Filed Vital Signs Vital Sign Reading Time Taken Comments Blood Pressure - - Pulse - - Temperature - - Respiratory Rate - - Oxygen Saturation - - Inhaled Oxygen Concentration - - Weight 106.6 kg (235 lb) 04/19/2022 1:49 PM CDT Height 188 cm (6' 2 ) 04/19/2022 1:49 PM CDT Body Mass Index 30.17 04/19/2022 1:49 PM CDT Plan of Treatment Health Maintenance Due Date Last Done Comments DTAP/TDAP/TD VACCINES (1 - Tdap) 1978 COLORECTAL SCREENING 2004 Colorectal Cancer Screening 2004 FIT-DNA Q 3 years 2004 FIT/FOBT Q 1 year 2004 Flex Sig/CT Colonography Q 5 years 2004 PNEUMOCOCCAL VACCINE 65+ YEA RS (1 of 1 - PCV) 2009 ZOSTER VACCINE (1 of 2) 2009 INFLUENZA VACCINE (#1) 2024 08/13/2016, 2014 RSV VACCINE (60+ or ) (1 - 1-dose 75+ series) 2034 Care Teams Histopath Tech Relationship Specialty Start Date End Date Frederick Farley MD [address] [place] [address] PCP - General Internal Medicine 05/19/19
[2024-11-02 20:34] LABS: Hematocrit 45.6 % (42.0-52.0); Hemoglobin 14.8 g/dL (14.0-18.0); Mean Corpuscular HGB Conc 32.5 g/dl (32-36); Mean Corpuscular Hemoglobin 28.7 pg (26-34); Mean Corpuscular Volume 88.5 fl (80-100); Mean Platelet Volume 9.5 fl (7.4-10.4); Platelet Count Result 300 k/mm3 (150-375); Red Blood Count 5.15 M/mm3 (4.6-6.20); Red Cell Distribution Width 14.4 % (11.5-14.5); White Blood Count 8.6 K/mm3 (4.5-10.0)
[2024-11-02 20:49] LABS: Rheumatoid Factor < 12.0 IU/ML (<12)
[2024-11-02 20:50] LABS: Alanine Aminotransferase 22 U/L (6-50); Albumin Level 4.1 g/dL (3.5-5.1); Alkaline Phosphatase 70 U/L (38-126); Anion Gap 9 mmol/L (4-12); Aspartate Amino Transferase 33 U/L (17-59); Blood Urea Nitrogen 25 mg/dL (9-20); Calcium 9.1 mg/dL (8.4-10.2); Carbon Dioxide 22 mmol/L (22-30); Chloride 106 mmol/L (98-107); Estimated Glomerular Filt Rate > 60; Glucose 89 mg/dL (65-110); Magnesium 2.1 mg/dL (1.6-2.3); Potassium 4.2 mmol/L (3.4-5.0); Sodium 137 mmol/L (137-145)
[2024-11-02 21:02] LABS: Vitamin D 25 Hydroxy 67.7 ng/mL
[2024-11-04 16:12] LABS: Anti Cyclic Citrullinated Pept <16 UNITS
== END 2024-11-02 09:46 | disposition home or self-care (01) ==
PROVIDERS: PCP Family Medicine; Visit Provider Family Medicine
DX: N40.0 Benign prostatic hyperplasia without lower urinary tract symptoms (principal); I10 Essential (primary) hypertension; E66.9 Obesity, unspecified; D64.9 Anemia, unspecified; N52.9 Male erectile dysfunction, unspecified; R20.0 Anesthesia of skin; R53.83 Other fatigue; Z79.899 Other long term (current) drug therapy; M25.50 Pain in unspecified joint
CPT/HCPCS: 36415; 80053; 82306; 82607; 83735; 84443; 85027; 86200; 86430

== ENCOUNTER 2024-12-28 12:59 | Outpatient (CLI) | payer BC, SELFPAY ==
--- NOTE | ~2024-12-28 | CT_ITS ---
EXAMINATION:CT lung screening DATE: 12/28/2024 13:22 INDICATION: Personal history of nicotine dependence. TECHNIQUE: Computed tomography (CT) of the chest was performed without intravenous contrast. Automate d exposure control and iterative reconstruction technique were employed. The dose-length product (DLP ) was 197.93 mGy-cm. COMPARISON: Chest CT 12/27/2023 FINDINGS: There is stable scarring at the lung apices. There is a 5 mm groundglass nodule in left low er lobe. There is chronic peripheral septal thickening in the lungs. Calcified right lung nodules are consistent with old granulomatous disease. No pleural effusion. The heart size is normal. No pericar dial effusion. There is mild bilateral gynecomastia. There are cysts in the liver measuring up to 11 mm. There is mild thoracic spondylosis. IMPRESSION: 1. Lung-RADS category 2: Benign appearance or behavior. Continue annual screening with noncontrast lo w-dose chest CT in 12 months. Reviewed, dictated and finalized at location A. IMPRESSION: 1. Lung-RADS category 2: Benign appearance or behavior. Continue annual screeni ng with noncontrast low-dose chest CT in 12 months.
--- OUTSIDE RECORDS SUMMARY | 2024-12-28 14:48 | XMS_ITS | Clinical Summary ---
Author Organization [facility] Address [address] [place] [phone] Phone Care Team Providers Care Drug Enforcement Agent Name Role Phone Provider, None Primary Care [...] years) (1 of 1 - PCV) 2009 Zoster Immunization (2 of 2) 10/15/2020 08/20/2020 Influenza Immunization (#1) 06/07/202408/07, 07/07/2018 SARS-COV-2 Immunization ( season) 2024 05/20/2021, 04/21/2021 [...] patient's age to complete this topic Insurance [facility] Care Teams Drug Enforcement Agent Relationship Specialty Start Date End Date Provider, None LORELEI PCP - General 09/26/21
--- OUTSIDE RECORDS SUMMARY | 2024-12-28 14:48 | XMS_ITS | Continuity of Care Document ---
Author Organization [facility] Address [address] [place] [address] Phone Care Team Providers Care Obstetrics Technician Name Role Phone Cherelle SUAREZ OD, Georgi [...] Diagnoses Date Provider Providers Copied on Encounter [facility], [address], [place], [place], [address], [place] tel:[phone] SEC [facility] No Information Cherelle Laureano. [address] [place], [place], [address], [place]. tel:[phone] Referring Provider: Georgi León, [address] [place], [address] . tel:[phone] [facility], [address], [place], [place], [address], tel:[phone] SEC [facility] No Information Cherelle SUAREZ Georgi. [address] [facility], [place], [place], [address], [place]. tel:[phone] Referring Provider: Georgi Cherelle SUAREZ P, [address] [facility], [place], [address] . tel:[phone] [facility], [address], [place], [place], [address], [place] tel:[phone] SEC [facility] No Information Cherelle OD Georgi. [address] [facility], [place], [place], [address], [place]. tel:[phone] [facility], [address], [place], [place], [address], [place] tel:[phone] SEC [facility] No Information Cherelle SUAREZ Georgi. [address] [facility], [place], [place], [address], [place]. tel:[phone] [facility], [address], [place], [place], [address], [place] tel:[phone] SEC [facility] No Information Cherelle SUAREZ Georgi. [address] [facility], [place], [place], [address], [place]. tel:[phone] [facility], [address], [place], [place], [address], [place] tel:[phone] SEC [facility] No Information Cherelle SUAREZ Georgi. [address] [facility], [place], [place], [address], [place]. tel:[phone] [facility], [address], [place], [place], [address], [place] tel:[phone] SEC [facility] No Information Cherelle Laureano. [address] [place], [place], [address], . tel:[phone] [facility], [address], [place], [place], [address], tel:[phone] SEC [facility] No Information [facility] . [address] [place], [place], [address], [place]. tel:[phone] Referring Provider: Georgi León, [address] [place], [address] . tel:[phone] [facility], [address] [facility] [place] [address] [address], [place], [place], [address], tel:[phone] SEC [facility] No Information Holly Patterson. [address], [address], [place], [place], [address], . tel:[phone] Referring Provider: Georgi León, [address] [place], [address] . tel:[phone] Family History Family Member Type Diagnosis Age At Onset No Information Payers Payer name Insurance type Covered libertarian ID Authoriza tion(s) No Information Social History [...]
--- OUTSIDE RECORDS SUMMARY | 2024-12-28 14:48 | XMS_ITS | Referral Summary ---
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 MPH Dash Nation MD LAB BLOOD ORDERABLES Katharina palmer Result [facility] [employer] [facility] [place] * COLONOSCOPY IMAGES (10/25/2016) Anatomical Region Laterality Modality Other Narrative 10/25/2016 Ordered by an unspecified provider. us Historical Provider GI PROCEDURE ORDERABLES F inal Result from Last 3 Months or Most Recently Relevant to Health Maintenance Insurance [place]ESS CHO[place] Care Teams Fuller Brush Worker Relationship Specialty Start Date End Date John Kam MD PCP - General Family Practice 03/30/22
--- OUTSIDE RECORDS SUMMARY | 2024-12-28 14:48 | XMS_ITS | Clinical Summary ---
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 Gender Identity Not on file Sexual Orientation [...] C Screening 1960 Hepatitis B Screening 1977 Pneumococcal vaccine 65+ (1 of 1 - PCV) 2009 Depression Screening 02/20/2019 02/20/2018, 07/15/20 17 Fall Risk Assessment 02/20/2019 02/20/2018 Prostate Cancer Screening-PSA 02/22/2020 02/21/2018 Zoster Vaccine (2 of 2) 10/15/2020 08/20/2020 Covid-19 Vaccine (3 - 2023-2 5 season) 2024 05/20/2021, 04/21/2021 Influenza Vaccine (#1) 2024 2, 08/20/2020, 07/07/2018, Additional history exists Abdominal Aortic Aneurysm (A AA) Screen 2024 Well Visit 65+ 2024 Colon Cancer [...] PSA 0.4 < OR = 4.0 ng/mL [facility] - [place] Comment: The total PSA value [...] Performing Organization Information: Site ID: [place] Name: [facility] Address: [address] [facility] [place] [address] Director: Ubaldo Kaur D.O., MPH Dash Nation MD LAB BLOOD ORDERABLES Katharina palmer Result [facility] [employer] - [place], [place] * COLONOSCOPY IMAGES (10/25/2016) Anatomical Region Laterality Modality Other Narrative 10/25/2016 Ordered by an unspecified provider. us Historical Provider GI PROCEDURE ORDERABLES F inal Result from Last 3 Months or Most Recently Relevant to Health Maintenance Insurance ANTHEM ACCESS CHOICE [place] Rethink Autism [place]ICE [place] Care Teams Reinforcing Steel Worker Wire Mesh Relationship Specialty Start Date End Date John Kam MD PCP - General Family Practice 03/30/22
--- OUTSIDE RECORDS SUMMARY | 2024-12-28 14:48 | XMS_ITS | Clinical Summary ---
Author Organization [facility] Address [address] [place] [address] Care Team Providers Care Cash Surrender Calculator Name Role Phone Frederick Farley MD Primary [...] Colonography Q 5 years 2004 PNEUMOCOCCAL VACCINE 50+ YEA RS (1 of 1 - PCV) 2009 ZOSTER VACCINE (1 of 2) 2009 INFLUENZA VACCINE (#1) 2024 08/13/2016, 2014 RSV VACCINE (60+ or ) (1 - 1-dose 75+ series) 2034 Care Teams Cash Surrender Calculator Relationship Specialty Start Date End Date Frederick Farley MD [address] [place] [address] PCP - General Internal Medicine 05/19/19
== END 2024-12-28 13:00 | disposition home or self-care (01) ==
PROVIDERS: PCP Nurse Practitioner Adult Health; Visit Provider Family Medicine
DX: Z12.2 Encounter for screening for malignant neoplasm of respiratory organs (principal); Z87.891 Personal history of nicotine dependence; M25.50 Pain in unspecified joint
CPT/HCPCS: 71271

== ENCOUNTER 2025-05-20 07:00 | Outpatient (CLI) | payer BC, SELFPAY ==
--- OUTSIDE RECORDS SUMMARY | 2025-05-20 07:03 | XMS_ITS | Clinical Summary ---
Author Organization [facility] Address [address] [place] [address] Phone Care Team Providers Care Building Insulation Installer Name Role Phone Provider, None Primary Care [...] Virus (HCV) Screening 1960 TdaP Immunization 1959 Cologuard 2004 Colonoscopy 2004 Colorectal Cancer Screening 2004 Immunochemical Fecal Occult Blood 2004 Pneumococcal Immunization (5 0+ years) (1 of 1 - PCV) 2009 Zoster Immunization (2 of 2) 10/15/2020 08/20/2020 SARS-COV-2 Immunization ( - season) 2024 05/20/2021, 04/21/2021 Influenza Immunization (#1) 06/07/202508/07, 07/07/2018 Respiratory Syncytial Virus (RSV) Immunization (Adult) (1 - 1-dose 75+ series) 2034 Hepatitis B Immunization Aged Out No longer eligible based on patient's age to complete this topic Human Papillomavirus (HPV) Immunization Aged Out No longer eligible b ased on patient's age to complete this topic Meningococcal Immunization (ACWY) Aged Out No longer eligible b ased on patient's age to complete this topic Rotavirus Immunization Aged Out No lo nger eligible based on patient's age to complete this topic Insurance [facility] Care Teams Building Insulation Installer Relationship Specialty Start Date End Date Provider, None LORELEI PCP - General 09/26/21
--- OUTSIDE RECORDS SUMMARY | 2025-05-20 07:03 | XMS_ITS | Clinical Summary ---
Author Organization [facility] Address [address] [place] [address] Care Team Providers Care Hyperbaric Nurse Name Role Phone Frederick Farley MD Primary [...] 1:49 PM CDT Height 188 cm (6' 2) 04/19/2022 1:49 PM CDT Body Mass Index [...] (1 of 2) 2009 INFLUENZA VACCINE (#1) 2025 08/13/2016, 2014 RSV VACCINE (60+ or ) (1 - 1-dose 75+ series) 2034 Care Teams Hyperbaric Nurse Relationship Specialty Start Date End Date Frederick Farley MD [address] [place] [address] PCP - General Internal Medicine 05/19/19
--- OUTSIDE RECORDS SUMMARY | 2025-05-20 07:03 | XMS_ITS | Clinical Summary ---
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 Gender Identity Not on file Sexual Orientation [...] 9:57 AM CDT Height 188 cm (6' 2) 02/20/2018 9:57 AM CDT Body Mass Index [...] - 2023-2 5 season) 2024 05/20/2021, 04/21/2021 Abdominal Aortic Aneurysm (A AA) Screen 2024 Well Visit 65+ 2024 Influenza Vaccine (#1) 2025 , 08/20/2020, 07/07/2018, Additional history exists Colon Cancer Screening-Colonoscopy 10/25/2026 10/25/2016 DTaP/Tdap/Td Vaccine [...] PSA 0.4 < OR = 4.0 ng/mL [employer] - [place] Comment: The total PSA value from this [...] Performing Organization Information: Site ID: SAVANA Name: [facility] Address: [address] [place] [address] Director: Ubaldo Kaur D.O., MPH Dash Nation MD LAB BLOOD ORDERABLES Katharina palmer Result [facility] [employer] [facility] [place], [place] * COLONOSCOPY IMAGES (10/25/2016) Anatomical Region Laterality Modality Other Narrative 10/25/2016 Ordered by an unspecified provider. us Historical Provider GI PROCEDURE ORDERABLES F inal Result from Last 3 Months or Most Recently Relevant to Health Maintenance Insurance ANTHEM ACCESS CHOICE [place] [employer] [place] Care Teams Community Service Specialist Relationship Specialty Start Date End Date John Kam MD PCP - General Family Practice 03/30/22
--- OUTSIDE RECORDS SUMMARY | 2025-05-20 07:03 | XMS_ITS | Continuity of Care Document ---
Author Organization [facility] Address [address] [place] [address] Phone Care Team Providers Care Net Maker Name Role Phone Cherelle SUAREZ OD, Georgi [...] Diagnoses Date Provider Providers Copied on Encounter [facility], [address], [place], [place], [address], [place] tel:[phone] SEC [facility] No Information Cherelle Laureano. [address] [place], [place], [address], [place]. tel:[phone] Referring Provider: Georgi León, [address] [place], [address] . tel:[phone] [facility], [address], [place], [place], [address], tel:[phone] SEC [facility] No Information Cherelle SUAREZ Georgi. [address] [facility], [place], [place], [address], [place]. tel:[phone] Referring Provider: Georgi Cherelle SUAREZ P, [address] [facility], [place], [address] . tel:[phone] [facility], [address], [place], [place], [address], [place] tel:[phone] SEC [facility] No Information Cherelle OD Georgi. [address] [facility], [place], [place], [address], [place]. tel:[phone] [facility], [address], [place], [place], [address], [place] tel:[phone] SEC [facility] No Information Cherelle SUAREZ Georgi. [address] [facility], [place], [place], [address], [place]. tel:[phone] [facility], [address], [place], [place], [address], [place] tel:[phone] SEC [facility] No Information Cherelle SUAREZ Georgi. [address] [facility], [place], [place], [address], [place]. tel:[phone] [facility], [address], [place], [place], [address], [place] tel:[phone] SEC [facility] No Information Cherelle SUAREZ Georgi. [address] [facility], [place], [place], [address], [place]. tel:[phone] [facility], [address], [place], [place], [address], [place] tel:[phone] SEC [facility] No Information Cherelle Laureano. [address] [place], [place], [address], . tel:[phone] [facility], [address], [place], [place], [address], tel:[phone] SEC [facility] No Information [facility] . [address] [place], [place], [address], [place]. tel:[phone] Referring Provider: Georgi León, [address] [place], [address] . tel:[phone] [facility], [address], [place], [place], [address], tel:[phone] SEC [facility] No Information Holly Patterson. [address], [place], [place], [address], . tel:[phone] Referring Provider: Georgi León, [address] [place], [address] . tel:[phone] Family History Family Member Type Diagnosis Age At Onset No Information Payers Payer name Insurance type Covered republican ID Authoriza tion(s) No Information Social History [...]
[2025-05-20 18:45] LABS: Alanine Aminotransferase 18 U/L (6-50); Albumin Level 4.0 g/dL (3.5-5.1); Alkaline Phosphatase 61 U/L (38-126); Anion Gap 5 mmol/L (4-12); Aspartate Amino Transferase 53 U/L (17-59); Bilirubin,Total 0.7 mg/dL (0.2-1.3); Blood Urea Nitrogen 27 mg/dL (9-20); Calcium 8.9 mg/dL (8.4-10.2); Carbon Dioxide 27 mmol/L (22-30); Chloride 106 mmol/L (98-107); Cholesterol 197 mg/dL (0-200); Estimated Glomerular Filt Rate > 60; Glucose 97 mg/dL (65-110); HDL Direct 42 mg/dL; Potassium 4.2 mmol/L (3.4-5.0); Sodium 138 mmol/L (137-145); Total Protein 6.7 g/dL (6.3-8.2); Triglycerides 92 mg/dL (<150)
[2025-05-20 19:20] LABS: Prostate Specific Antigen 0.5 ng/mL (< OR = 4.0)
== END 2025-05-20 07:01 | disposition home or self-care (01) ==
LOC: ANHBWCLAB 07:01
PROVIDERS: PCP Nurse Practitioner Adult Health; Visit Provider Nurse Practitioner Adult Health
DX: Z00.00 Encounter for general adult medical examination without abnormal findings (principal); Z12.5 Encounter for screening for malignant neoplasm of prostate
CPT/HCPCS: 36415; 80053; 80061; 84153; G0103